=== PATIENT | female | born 2000 | race Caucasian/White ===

== ENCOUNTER 2018-07-05 11:50 | Emergency (ER) | payer OTHER ==
[2018-07-05] MEDS: IBUPROFEN 600 MG TAB PO (12:20)
== END 2018-07-05 14:07 | disposition home or self-care (01) ==
LOC: FTE 11:50
DX: S80.01XA Contusion of right knee, initial encounter (principal); S93.501A Unspecified sprain of right great toe, initial encounter; W01.0XXA Fall on same level from slipping, tripping and stumbling without subsequent striking against object, initial encounter; Y92.89 Other specified places as the place of occurrence of the external cause
CPT/HCPCS: 29505; 73564; 73660; 99283-25

== ENCOUNTER 2018-12-24 20:54 | Emergency (ER) | payer OTHER ==
[2018-12-24] MEDS: ACETAMINOPHEN 325 MG TAB PO (23:04)
== END 2018-12-24 23:10 | disposition home or self-care (01) ==
LOC: FTE 20:54
DX: S93.432A Sprain of tibiofibular ligament of left ankle, initial encounter (principal); W18.40XA Slipping, tripping and stumbling without falling, unspecified, initial encounter; Y92.89 Other specified places as the place of occurrence of the external cause
CPT/HCPCS: 73610; 99283-25